=== PATIENT | female | born 1995 | race Hispanic/Latino ===

== ENCOUNTER 2025-09-02 12:21 | Emergency (ER) | payer OTHER, SELFPAY ==
[2025-09-02 12:29] VITALS: BP 115/73; PULSE 61; RESP 16; TEMP 36.4; O2SAT 98; BMI 25.4
[2025-09-02] MEDS: ONDANSETRON 4 MG/2 ML INJ IV (12:54)
[2025-09-02 13:12] LABS: Alanine Aminotransferase 13 IU/L (<35); Albumin 4.6 g/dL (3.5-5.0); Albumin Globulin Ratio 1.4 (1.0-2.8); Alkaline Phosphatase 79 U/L (38-126); Blood Urea Nitrogen 18 mg/dL (7-17); Calcium 9.1 mg/dL (8.4-10.2); Carbon Dioxide 28 mmol/L (22-32); Chloride 104 mmol/L (98-107); Estimated Glomerular Filt Rate > 60 mL/min (>60); Globulin 3.4 g/dL (1.7-4.1); Glucose 93 mg/dL (70-99); HEMOLYSIS < 15 (0-50); Lipase 82 U/L (23-300); Potassium 3.9 mmol/L (3.4-5.1); Sodium 141 mmol/L (137-145); Total Protein 8.0 g/dL (6.3-8.2)
[2025-09-02 13:15] LABS: Add Manual Diff / Slide Review NO; Hematocrit 41.2 % (36-46); Hemoglobin 14.0 g/dL (12.0-16.0); Lymphocytes Absolute Auto 1600 /uL (1100-4500); Mean Corpuscular HGB Conc 33.9 % (30-36); Mean Corpuscular Hemoglobin 30.1 PG (26-34); Mean Corpuscular Volume 88.6 fL (80-100); Platelet Count 246 X10^3/uL (150-400)
[2025-09-02 14:20] VITALS: BP 100/53; PULSE 55; O2SAT 99
--- NOTE | 2025-09-02 14:28 | ED.ABDPAIN ---
HPI - Abdominal Pain General Chief Complaint: Abdominal Pain Stated Complaint: abd pain, bloated, trouble breathing Time Seen by Provider: 09/02/25 12:33 Source: patient Mode of arrival: Ambulatory History of Present Illness HPI narrative: Patient is a healthy 30-year-old female presenting to day with abdominal pain. She reports that it only happened today pain is right in the center of her abdomen she felt bloated and nauseous. She did not throw up she did not have a bowel movement no pain in the ED pain is completely resolved. She only had chest pain when she was having abdominal pain she will rate chest pain now no shortness of breath or fevers. Related Data Allergies Allergy/AdvReac Type Severity Reaction Status Date / Time No Known Drug Allergies Allergy Verified 09/02/25 12:29 Patient History Social History Smoking Status: Never smoker Smoking Status: Never smoker Exam Initial Vital Signs Initial Vital Signs: Vital Signs Temperature 97.6 F 09/02/25 12:29 Pulse Rate 61 09/02/25 12:29 Respiratory Rate 16 09/02/25 12:29 Blood Pressure 115/73 09/02/25 12:29 Pulse Oximetry 98 09/02/25 12:29 Oxygen Delivery Method Room Air 09/02/25 12:29 GENERAL: Alert very well-appearing 30-year-old female and in no acute distress. HEENT: Head atraumatic,EOMI, pupils reactive, face symmetric, moist mucous membranes CARDIOVASCULAR: Regular rate and rhythm without murmurs, rubs or gallops. RESPIRATORY: Breath sounds equal bilaterally, no wheezes rales or rhonchi. ABDOMEN: Soft, nontender. Normoactive bowel sounds all 4 quadrants. No guarding or rebound. No distention no right lower quadrant pain negative Jung's sign EXTREMITIES: Normal range of motion, no clubbing or edema. Neurovascularly intact NEUROLOGICAL: Alert and oriented x4.Normal gait and speech. Cranial nerves II through XII grossly intact. SKIN: Warm, dry, no laceration, no petechiae, no rashes or lesions. Course Orders Ordered: ED Orders 09/02/25 12:48 Complete Blood Count AUTO DIFF Stat Comprehensive Metabolic Panel Stat Lipase Stat 09/02/25 14:15 Ictotest Urine Stat Urine Culture Stat Urine Microscopic Stat Discontinued Medications Ondansetron HCl (Ondansetron 4 Mg/2 Ml Inj) 4 mg IV NOW PRN PRN Reason: Nausea And Vomiting Last Admin: 09/02/25 12:54 Dose: 4 mg Documented By: HEATHER Ondansetron HCl (Ondansetron 4 Mg Odt) 4 mg PO NOW PRN PRN Reason: Nausea And Vomiting Vital Signs Vital signs: Vital Signs - 8 hr 09/02/25 12:29 09/02/25 14:20 09/02/25 14:20 Temperature 97.6 F Pulse Rate 61 55 L Respiratory Rate 16 Blood Pressure 115/73 100/53 L Pulse Oximetry 98 99 Oxygen Delivery Method Room Air 09/02/25 14:42 Temperature 98.8 F Pulse Rate 54 L Respiratory Rate 16 Blood Pressure 92/59 L Pulse Oximetry 98 Oxygen Delivery Method Room Air MDM - Abdominal Pain Lab Data 09/02/25 12:48 09/02/25 12:48 Labs: Lab Results 09/02/25 09/02/25 Range/Units 12:48 14:15 WBC 6.6 (4.5-11.0) X10^3/uL RBC 4.65 (4.0-5.2) X10^6/uL Hgb 14.0 (12.0-16.0) g/dL Hct 41.2 (36-46) % MCV 88.6 (80-100) fL MCH 30.1 (26-34) PG MCHC 33.9 (30-36) % RDW 13.0 (11.6-14.8) % Plt Count 246 (150-400) X10^3/uL Neut % (Auto) 67.6 (50-75) % Lymph % (Auto) 24.2 L (25-40) % [place] % (Auto) 7.3 (3-14) % Eos % (Auto) 0.3 L (2-4) % Baso % (Auto) 0.6 (0-2) % Neut # (Auto) 4400 (6699-8077) /uL Lymph # (Auto) 1600 (6118-9047) /uL [place] # (Auto) 500 (0-900) /uL Eos # (Auto) 0 (0-450) /uL Baso # (Auto) 0 (0-100) /uL Sodium 141 (137-145) mmol/L Potassium 3.9 (3.4-5.1) mmol/L Chloride 104 (98-107) mmol/L Carbon Dioxide 28 (22-32) mmol/L BUN 18 H (7-17) mg/dL Creatinine 0.88 (0.52-1.04) mg/dL Estimated GFR > 60 (>60) mL/min BUN/Creatinine Ratio 20.5 (6-22) Glucose 93 (70-99) mg/dL Calcium 9.1 (8.4-10.2) mg/dL Total Bilirubin 0.3 (0.2-1.3) mg/dL AST 21 (14-36) IU/L ALT 13 (<35) IU/L Alkaline Phosphatase 79 (38-126) U/L Total Protein 8.0 (6.3-8.2) g/dL Albumin 4.6 (3.5-5.0) g/dL Globulin 3.4 (1.7-4.1) g/dL Albumin/Globulin Ratio 1.4 (1.0-2.8) Lipase 82 (23-300) U/L Ur Bilirubin Confirm Negative (Negative) Urine RBC None seen (0-5/HPF) Urine WBC 1-5/hpf (0-5/HPF) Ur Squamous Epith Cells 1-5 /hpf (0-5/HPF) Urine Bacteria None seen (None) Ur Culture Indicated? Specimen cultured Vol Urine Centrifuged 10ml (spun) Point of care testing: Point of Care Testing Test Results Negative Urine Dip Bedside Urine Glucose Negative Bedside Urine Bilirubin + 1 Bedside Urine Ketone - Negative Urine Specific [place] 1.020 Bedside Urine Occult Blood - Negative Bedside Urine pH 6.5 Bedside Urine Protein +/- 15 Bedside Urine Urobilinogen - Negative Bedside Urine Nitrite - Negative Bedside Urine Leukocytes ++ 125 Esterase MDM Narrative Medical decision making narrative: Patient is a healthy 30-year-old female presenting today with abdominal pain. She just felt bloated and had a little bit of some chest pain. Symptoms have completely resolved in the ED without any kind of intervention except for Zofran. She has not had any sort of fever. Work has been reviewed she has no leukocytosis no anemia no electrolyte abnormality bilirubin liver enzymes and lipase all within normal limits. Urinalysis negative for she does have some leukocytes but no UTI symptoms. Discussion with her at this time I do not think there needs to be any sort of imaging done. She agrees if symptoms return then she can come back to the ED. Discharge Plan Departure Patient Disposition: Home Clinical Impression: Abdominal pain Instructions: DI for Abdominal Pain-Adult Activity Restrictions/Additional Instructions: *You have been diagnosed with abdominal pain *What to do: At this time continue to drink fluids okay to take Tylenol Motrin as needed *Continue to take medications as directed *Follow up with your primary care provider in 2-3 days or call [phone] *Return to ER if you should have increasing abdominal pain persistent vomiting fever or any new, worsening or concerning symptoms Referrals: Miscellaneous,Doctor, MD [Primary Care Provider, Medical] Stand Alone Forms: Patient Portal/API
[2025-09-02 14:32] LABS: Ictotest Urine Negative (Negative)
[2025-09-02 14:35] LABS: Culture Indicated Urine Specimen Cultured
[2025-09-02 14:42] VITALS: BP 92/59; PULSE 54; RESP 16; TEMP 37.1; O2SAT 98
== END 2025-09-02 14:42 | disposition home or self-care (01) ==
PROVIDERS: Emergency Provider Emergency Medicine
DX: R10.9 Unspecified abdominal pain (principal)
CPT/HCPCS: 36415; 80053; 81003; 81015; 81025; 83690; 85025; 87086; 96374; 99284; J2405